=== PATIENT | female | born 1995 | race African-American/Black ===

== ENCOUNTER 2018-12-20 06:28 | Emergency (ER) | payer OTHER ==
[~2018-12-20] VITALS: Ht 165.1 cm; Wt 65.5 kg
[2018-12-20] MEDS ORDERED: FOLI400T PO (06:43)
[2018-12-20 07:37] LABS: BASO % 0.4 % (0.0-1.0); EOS # 0.1 10^3/uL (0.0-0.50); EOS % 1.3 % (0.0-3.0); HEMATOCRIT 40.6 % (36.0-47.0); HEMOGLOBIN 13.6 g/dl (12.0-15.5); LYMPH # 1.9 10^3/uL (1.5-6.5); LYMPH % 39.8 % (24.0-44.0); MEAN CORPUSCULAR HEMOGLOBIN 29.5 pg (27.0-33.0); MEAN CORPUSCULAR HGB CONC 33.5 g/dl (32.0-36.5); MEAN CORPUSCULAR VOLUME 88.1 fl (80.0-96.0); MONO # 0.3 10^3/uL (0.0-0.8); MONO % 5.6 % (0.0-5.0); NEUTROPHILS # 2.5 10^3/uL (1.8-7.7); NEUTROPHILS % 52.7 % (36.0-66.0); PLATELET COUNT, AUTOMATED 221 10^3/uL (150-450); RED BLOOD COUNT 4.61 10^6/uL (4.00-5.40); WHITE BLOOD COUNT 4.8 10^3/uL (4.0-10.0)
[2018-12-20 08:19] LABS: BLOOD UREA NITROGEN 7 MG/DL (7-18); CALCIUM LEVEL 8.6 MG/DL (8.5-10.1); CARBON DIOXIDE LEVEL 25 MEQ/L (21-32); CHLORIDE LEVEL 105 MEQ/L (98-107); CREATININE FOR GFR 0.79 MG/DL (0.55-1.30); GLOMERULAR FILTRATION RATE > 60.0 (>60); GLUCOSE, FASTING 90 MG/DL (70-100); HCG, SERUM QUANTITATIVE 103815 MIU/ML; POTASSIUM SERUM 3.7 MEQ/L (3.5-5.1); SODIUM LEVEL 138 MEQ/L (136-145)
--- NOTE | 2018-12-20 08:58 | REP ---
First trimester ultrasound for vaginal bleeding, stat request: The study is performed with transabdominal, endovaginal and Doppler ultrasound assessment. There is an intrauterine gestational sac with a pole. The heart rate is 160 beats per minute. The pole crown-rump length is 18.0 mm. This corresponds to a gestational age of 8 weeks 2 days/ANGELES 07/30/2019. The There is no subchorionic hematoma. There is a large right adnexal cyst measuring 6.6 x 4.0 x 6.3 cm., likely a corpus luteum. The right ovary measures 3.1 x 1.6 x 2.7 cm excluding in the large cyst. There is vascular flow in the right ovary with the Doppler resistive index of the parenchymal arteries measuring 0.51. There is a trace of free fluid in the right adnexa. The left ovary could not be identified. Electronically Signed by Rajiv Pate MD 12/20/2018 08:49 A
[2018-12-20 09:07] VITALS: BP 124/70
== END 2018-12-20 09:14 | disposition home or self-care (01) ==
LOC: M ED 06:28
DX: O26.891 Other specified pregnancy related conditions, first trimester (principal); O34.81 Maternal care for other abnormalities of pelvic organs, first trimester; Z3A.08 8 weeks gestation of pregnancy; Z79.899 Other long term (current) drug therapy

== ENCOUNTER 2019-02-12 10:04 | Emergency (ER) | payer OTHER ==
[~2019-02-12] VITALS: Ht 165.1 cm; Wt 65.5 kg
[~2019-02-12 10:04] MED LIST: FOLI400T PO
[2019-02-12] MEDS ORDERED: ASPI81TA85 PO (10:11)
[2019-02-12] MEDS ORDERED: PREN29CH2 PO (10:11)
[2019-02-12 11:12] LABS: BASO % 0.1 % (0.0-1.0); EOS # 0.1 10^3/uL (0.0-0.50); EOS % 1.2 % (0.0-3.0); HEMATOCRIT 38.2 % (36.0-47.0); HEMOGLOBIN 13.1 g/dl (12.0-15.5); LYMPH # 1.9 10^3/uL (1.5-6.5); MEAN CORPUSCULAR HGB CONC 34.3 g/dl (32.0-36.5); MEAN CORPUSCULAR VOLUME 87.6 fl (80.0-96.0); MONO # 0.3 10^3/uL (0.0-0.8); MONO % 4.7 % (0.0-5.0); NEUTROPHILS # 4.9 10^3/uL (1.8-7.7); NEUTROPHILS % 67.6 % (36.0-66.0); PLATELET COUNT, AUTOMATED 199 10^3/uL (150-450); RED BLOOD COUNT 4.36 10^6/uL (4.00-5.40); WHITE BLOOD COUNT 7.3 10^3/uL (4.0-10.0)
[2019-02-12] MEDS ORDERED: ONDANSETRON 4MG/2ML VIAL (J2405) IV ONE (11:15)
[2019-02-12] MEDS ORDERED: NS 1,000 ML IV ONE (11:15)
[2019-02-12 11:45] LABS: ALBUMIN 2.9 GM/DL (3.2-5.2); ALT/SGPT 13 U/L (12-78); BILIRUBIN,TOTAL 0.5 MG/DL (0.2-1.0); BLOOD UREA NITROGEN 6 MG/DL (7-18); CALCIUM LEVEL 8.2 MG/DL (8.5-10.1); CARBON DIOXIDE LEVEL 25 MEQ/L (21-32); CHLORIDE LEVEL 108 MEQ/L (98-107); CREATININE FOR GFR 0.68 MG/DL (0.55-1.30); GLOMERULAR FILTRATION RATE > 60.0 (>60); GLUCOSE, FASTING 80 MG/DL (70-100); POTASSIUM SERUM 3.6 MEQ/L (3.5-5.1); SODIUM LEVEL 140 MEQ/L (136-145); TOTAL PROTEIN 6.8 GM/DL (6.4-8.2)
[2019-02-12] MEDS ORDERED: ZOFR4TAB16 PO (12:28)
[2019-02-12 13:22] VITALS: BP 110/61
== END 2019-02-12 13:24 | disposition home or self-care (01) ==
LOC: M ED 11:23
DX: O26.812 Pregnancy related exhaustion and fatigue, second trimester (principal); O21.1 Hyperemesis gravidarum with metabolic disturbance; Y99.1 Military activity; Z3A.16 16 weeks gestation of pregnancy; Z79.82 Long term (current) use of aspirin
CPT/HCPCS: 80053; 81001; 85025; 96361; 96374; 99284; J2405

== ENCOUNTER 2019-03-13 05:14 | Outpatient (CLI) | payer OTHER ==
[~2019-03-13] VITALS: Ht 165.1 cm; Wt 71.2 kg
[~2019-03-13 05:14] MED LIST changes: +ASPI81TA85 PO; +PREN29CH2 PO; +ZOFR4TAB16 PO
[2019-03-13 05:37] VITALS: BP 112/66
[2019-03-13 06:03] VITALS: BP 127/69
== END 2019-03-13 06:23 | disposition home or self-care (01) ==
LOC: M LDO 05:14
PROVIDERS: ATTEND Specialist
DX: O26.892 Other specified pregnancy related conditions, second trimester (principal); Z3A.20 20 weeks gestation of pregnancy; R42 Dizziness and giddiness
CPT/HCPCS: G0378; G0463

== ENCOUNTER 2019-06-20 15:43 | Outpatient (CLI) | payer OTHER ==
[~2019-06-20] VITALS: Ht 167.6 cm; Wt 83.3 kg
[2019-06-20 16:09] VITALS: BP 110/58
--- NOTE | 2019-06-20 18:07 | IPNPDOC ---
Obstetrical Progress Note Date of Service Jun 20, 2019 Subjective Ms. Bansal is a 24yo at 34+2wks who presents to triage with c/o leaking fluid x3 weeks. Pt reports +FM, denies LOF/VB/CTX. She also c/o frequent desire to void, but with little flow; denies dysuria; she also denies recent intercourse (>2 months), denies abnormal discharge. Ms. Bansal states that she leaks so much fluid that she frequently soaks a pad and could fill up a cup with the amount of fluid leaking. Despite having two visits in the clinic over the past three weeks, she has not reported this to her primary OB provider. Objective O: VSS FHR 135, moderate variability, + accels, no decels noted CTX: None, abdomen soft by palpation RINA: Single deepest pocket 4.21; Confirmed Vertex presentation SSE: No fluid pooling, copius yeast adhered to vaginal scales; cervix appears closed Wet Prep: + yeast buds, no clue cells Urine sent to lab for UA/UC, was dark yellow (c/w dehydration) Vital Signs Date Time Temp Pulse Resp B/P (MAP) Pulse Ox O2 Delivery O2 Flow Rate FiO2 06/20/19 16:09 98.7 86 18 110/58 (75) 98 Room Air Assessment and Plan Status: Reassuring Group B Streptococcus: Unknown Additional Comments A: 24yo at 34+2wks, Intact membranes, Reactive NST, + yeast; dehydration (pt PO hydrated in triage) P: Pt discharged home with precautions 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
[2019-06-20 18:32] LABS: APPEARANCE, URINE CLEAR (CLEAR); BACTERIA, URINE AUTO NEGATIVE (NEGATIVE); BILIRUBIN, URINE AUTO NEGATIVE (NEGATIVE); BLOOD, URINE BLOOD NEGATIVE (NEGATIVE); COLOR, URINE YELLOW (YELLOW); GLUCOSE, URINE (UA) AUTO NEGATIVE (NEGATIVE); KETONE, URINE AUTO NEGATIVE (NEGATIVE); LEUKOCYTE ESTERASE, URINE AUTO 1+ (NEGATIVE); MUCUS, URINE SMALL (NEGATIVE); NITRITE, URINE AUTO NEGATIVE (NEGATIVE); PROTEIN, URINE AUTO NEGATIVE (NEGATIVE); RBC, URINE AUTO 1 /HPF (0-3); SPECIFIC GRAVITY URINE AUTO 1.027 (1.002-1.035); SQUAMOUS EPITHELIAL CELL UR AU 4 /HPF (0-6); WBC, URINE AUTO 2 /HPF (0-3)
== END 2019-06-20 18:18 | disposition home or self-care (01) ==
LOC: M LDO 15:43
PROVIDERS: ATTEND Registered Nurse Maternal Newborn
DX: O26.893 Other specified pregnancy related conditions, third trimester (principal); Z3A.34 34 weeks gestation of pregnancy; N89.8 Other specified noninflammatory disorders of vagina
CPT/HCPCS: 59025; 81001; 87086; G0378; G0463